=== PATIENT | female | born 1990 | race Two or more races ===

== ENCOUNTER 2018-04-02 18:46 | Emergency (ER) | payer MEDICAID ==
[2018-04-02 18:55] VITALS: BP 112/69
--- NOTE | 2018-04-02 20:04 | ER Document Report ---
ED General - General Chief Complaint: Requesting Detox from alcohol Stated Complaint: DETOX Time Seen by Provider: 04/02/18 19:52 Notes: 27-year-old female here with request for detox from alcohol. Over the past month she has been drinking 2-340 ounce beers daily. She ran out of her psychiatric medications (Vistaril gabapentin Seroquel etc.) 1 month ago and has been self-medicating with alcohol to help her sleep at night. She ran out of her medications and has not gone back to see [facility] for refills because she smokes marijuana and was afraid that she would be drug tested and they would not give her any more refills. So she chose to continue smoking marijuana and replacing her psychiatric medications with alcohol. She denies any SI HI hallucinations illicit drugs (aside from marijuana). She does not have any other physical complaints. TRAVEL OUTSIDE OF THE [place] IN LAST 30 DAYS: No - Related Data Allergies/Adverse Reactions: No Known Allergies Allergy (Verified 02/10/15 10:32) Past Medical History - Social History Smoking Status: Current Every Day Smoker Frequency of alcohol use: daily Drug Abuse: Marijuana Family History: Reviewed & Not Pertinent Patient has suicidal ideation: No Patient has homicidal ideation: No Renal/ Medical History: Denies: Hx Peritoneal Dialysis Psychiatric Medical History: Reports: Hx Bipolar Disorder, Hx Depression - Immunizations Hx Diphtheria, Pertussis, Tetanus Vaccination: Yes Review of Systems - Review of Systems Notes: See history of present illness for pertinent positive review of systems; otherwise all review of systems have been reviewed and are negative Physical Exam - Vital signs Vitals: Temp Pulse Resp BP Pulse Ox 98.5 F 93 20 112/69 98 04/02/18 18:54 04/02/18 18:54 04/02/18 18:54 04/02/18 18:54 04/02/18 18:54 - Notes Notes: PHYSICAL EXAMINATION: GENERAL: Well-appearing and in no acute distress. HEAD: Atraumatic, normocephalic. EYES: Pupils equal round and reactive to light, extraocular movements intact, sclera anicteric, conjunctiva are normal. ENT: nares patent, oropharynx clear without exudates. Moist mucous membranes. NECK: Normal range of motion, supple without lymphadenopathy LUNGS: CTAB and equal. No wheezes rales or rhonchi. HEART: Regular rate and rhythm without murmurs ABDOMEN: Soft, no tenderness. No facial grimacing/wincing upon palpation. No guarding, no rebound. EXTREMITIES: Normal range of motion, no pitting edema. No cyanosis. NEUROLOGICAL: Cranial nerves grossly intact. Normal sensory/motor exams. PSYCH: Normal mood, normal affect. SKIN: Warm, Dry, normal turgor, no rashes or lesions noted Course - Re-evaluation Re-evalutation: 04/02/18 20:02 MEDICAL DECISION MAKING: The patient does not currently have any tremors palpitations tachycardia or other symptoms of alcohol withdrawal syndrome I have performed a medical screening exam and patient does not currently have an emergency medical condition Discussed with her that our substance abuse team is not here at nighttime and will be back in the morning Discussed with her she could return in the morning if she would like to speak with them about detox placement She does not have any SI HI hallucinations or other emergency psychiatric conditions I feel safe with discharging her home and she has thanked us for our help Patient understands and agrees to the plan of care - Vital Signs Vital signs: Temp Pulse Resp BP Pulse Ox 98.5 F 93 20 112/69 98 04/02/18 18:54 04/02/18 18:54 04/02/18 18:54 04/02/18 18:54 04/02/18 18:54 Discharge - Discharge Clinical Impression: Desire for detoxification Condition: Good Disposition: HOME, SELF-CARE Additional Instructions: You were seen in the emergency department at [facility]. You requested alcohol detoxification. We do not perform that at this facility. You will need medical clearance and to help of our substance abuse team to place you into a detoxification facility. The substance abuse team will be here in the morning so please return then. Otherwise, please followup with your primary physician in the next few days for further management/evaluation. Please return to the emergency department for worsening of symptoms or any symptom that you deem to be concerning or life-threatening. Thank you for allowing us to be part of your care.
== END 2018-04-02 20:00 | disposition home or self-care (01) ==
LOC: ER 18:46
DX: F10.20 Alcohol dependence, uncomplicated (principal); F17.200 Nicotine dependence, unspecified, uncomplicated
CPT/HCPCS: 99283

== ENCOUNTER 2018-06-02 10:02 | Emergency (ER) | payer MEDICAID, OTHER ==
--- NOTE | 2018-06-02 10:13 | ER Document Report ---
ED Psych Disorder / Suicide - General Mode of Arrival: Ambulatory Information source: Patient, Law Enforcement, Transfer Record - IVC PETITION TRAVEL OUTSIDE OF THE [place] IN LAST 30 DAYS: No - HPI Patient complains to provider of: Other - IVC PETITION Onset: Other - UNKNOWN Onset was: Cannot confirm Quality of pain: No pain Suicide Risk Factors: Bipolar, Frightened friends/family, Substance abuse Situational problems related to: Spouse - EX Normal mood: No Associated symptoms: Agitated, Angry, Restlessness Similar symptoms previously: Yes Recently seen / treated by doctor: No <TERESA JIMÉNEZ - Last Filed: 06/02/18 18:11> <GAIL GONZALEZ - Last Filed: 06/06/18 09:18> <GUILLERMO MORALES - Last Filed: 06/06/18 10:00> - General Stated Complaint: PSYCH EVAL Time Seen by Provider: 06/02/18 10:08 - Related Data Allergies/Adverse Reactions: No Known Allergies Allergy (Verified 02/10/15 10:32) Past Medical History - General Information source: Patient - Social History Smoking Status: Current Every Day Smoker Cigarette use (# per day): Yes Chew tobacco use (# tins/day): No Smoking Education Provided: No Frequency of alcohol use: Heavy - DAILY Drug Abuse: Cocaine, Heroin, Marijuana, Methamphetamine Lives with: Friend Family History: Reviewed & Not Pertinent Patient has suicidal ideation: No - DENIES Patient has homicidal ideation: No - DENIES - Past Medical History Cardiac Medical History: Reports: None Pulmonary Medical History: Reports: None EENT Medical History: Reports: None Neurological Medical History: Reports: None Endocrine Medical History: Reports: None Renal/ Medical History: Reports: None. Denies: Hx Peritoneal Dialysis Malignancy Medical History: Reports: None GI Medical History: Reports: None Musculoskeletal Medical History: Reports None Skin Medical History: Reports None Psychiatric Medical History: Reports: Hx Bipolar Disorder, Hx Depression Surgical Hx: Negative - Immunizations Hx Diphtheria, Pertussis, Tetanus Vaccination: Yes <TERESA JIMÉNEZ - Last Filed: 06/02/18 18:11> Review of Systems - Review of Systems Constitutional: No symptoms reported EENT: No symptoms reported Cardiovascular: No symptoms reported Respiratory: No symptoms reported Gastrointestinal: No symptoms reported Genitourinary: No symptoms reported Female Genitourinary: No symptoms reported Musculoskeletal: No symptoms reported Skin: No symptoms reported Neurological/Psychological: See HPI <TERESA JIMÉNEZ - Last Filed: 06/02/18 18:11> Physical Exam - Vital signs Interpretation: Tachycardic - General General appearance: Appears well, Alert In distress: None - HEENT Head: Normocephalic Eyes: Normal Conjunctiva: Normal Ears: Normal Nasal: Normal Mouth/Lips: Normal Mucous membranes: Normal - Respiratory Respiratory status: No respiratory distress Breath sounds: Normal - Cardiovascular Rhythm: Regular - INITIALY TACHYCARDIC, NOW RESOLVED Heart sounds: Normal auscultation Murmur: No - Abdominal Inspection: Normal Distension: No distension - Back Back: Normal - Extremities General upper extremity: Normal inspection General lower extremity: Normal inspection - Neurological Neuro grossly intact: Yes Cognition: Normal Orientation: AAOx4 - Psychological Associated symptoms: Agitated - Skin Skin Temperature: Warm Skin Moisture: Dry Skin Color: Normal Skin Turgor: Elastic <TERESA JIMÉNEZ - Last Filed: 06/02/18 18:11> - Vital signs Vitals: Temp Pulse Resp BP Pulse Ox 99.1 F 133 H 20 139/77 H 94 06/02/18 10:10 06/02/18 10:10 06/02/18 10:10 06/02/18 10:10 06/02/18 10:10 Course - Laboratory Result Diagrams: 06/02/18 10:10 06/02/18 10:10 - EKG Interpretation by Il EKG shows normal: Sinus rhythm, Martha, Intervals, QRS Complexes, ST-T Waves Rate: Tachycardia <TERESA JIMÉNEZ - Last Filed: 06/02/18 18:11> - Laboratory Result Diagrams: 06/02/18 10:10 06/02/18 10:10 <GAIL GONZALEZ - Last Filed: 06/06/18 09:18> - Laboratory Result Diagrams: 06/02/18 10:10 06/02/18 10:10 <GUILLERMO MORALES - Last Filed: 06/06/18 10:00> - Re-evaluation Re-evalutation: 06/02/18 18:11 At this time, patient is alert, somewhat agitated but much better than before. She continues to exhibit inappropriate behaviors which could be dangerous to herself, and therefore restraints have been continued for another 4 hours. ( TERESA JIMÉNEZ) - Vital Signs Vital signs: Temp Pulse Resp BP Pulse Ox 98.6 F 96 18 110/60 97 06/06/18 03:32 06/06/18 03:32 06/06/18 03:32 06/06/18 03:32 06/06/18 03:32 - Laboratory Laboratory results interpreted by me: 06/02/18 06/02/18 06/02/18 10:10 10:10 10:15 WBC 15.7 H MCH 26.3 L RDW 15.7 H Absolute Neutrophils 11.3 H Absolute Monocytes 1.5 H BUN 5 L Urine Urobilinogen 2.0 H Salicylates < 1.0 L Acetaminophen < 10 L Discharge <TERESA JIMÉNEZ - Last Filed: 06/02/18 18:11> <GAIL GONZALEZ - Last Filed: 06/06/18 09:18> <GUILLERMO MORALES - Last Filed: 06/06/18 10:00> - Discharge Clinical Impression: Schizoaffective disorder, bipolar type Condition: Stable Disposition: HOME, SELF-CARE Additional Instructions: You have been evaluated by both medical and the behavioral health team's and if deemed appropriate for discharge. Please follow-up with your outpatient mental health provider, [facility], in 3-5 days for your continued mental health and substance abuse services. Bipolar Disorder Bipolar disorder is also called manic-depressive disorder. Depression alternates with brain hyperactivity called leah. Each phase lasts from several days to a few weeks. We don't know exactly what causes bipolar disorder , but it's treatable. During the "manic phase," you may feel elated and energetic. You may have racing thoughts, rapid speech, increased activity, and grandiose ideas. During this time, you may not realize how poor your judgement is. Inappropriate spending, drug abuse, excessive alcohol use, marriage problems, and irresponsible sexual behavior are common during the manic phase. During the "depressive phase," you might feel depressed, guilty, worthless , fatigued, and unable to concentrate. You might have thoughts of suicide. Good treatments are available for bipolar disorder. Metaline is a classic drug for bipolar disorder, and is still often useful. If the manic phase is very mild, an antidepressant alone can be prescribed. If the manic phase is very severe, an antipsychotic medicine (such as Haldol) may be needed. The treatment must be matched to your symptoms, so it's important to work closely with your psychiatric care provider. Contact your physician, the hospital emergency center, crisis line, or your counsellor if you are losing control or having self-destructive thoughts. AT ANY TIME, IF YOUR SYMPTOMS CHANGE SIGNIFICANTLY OR WORSEN OR YOU DEVELOP NEW SYMPTOMS, RETURN TO THE EMERGENCY DEPARTMENT IMMEDIATELY FOR RE-EVALUATION. Prescriptions: Benztropine Mesylate [Cogentin 1 mg Tablet] 1 mg PO BID #14 tablet Olanzapine [Zyprexa 5 mg Tablet] 10 mg PO Q12 #28 tablet Referrals: BRODERICK BURLESON MD [ACTIVE STAFF] - Follow up as needed
[2018-06-02 11:00] LABS: ABSOLUTE BASOPHILS # (AUTO) 0.1 10^3/uL (0.0-0.2); ABSOLUTE EOSINOPHILS # (AUTO) 0.4 10^3/uL (0.0-0.6); ABSOLUTE LYMPHOCYTES (AUTO) 2.5 10^3/uL (0.5-4.7); ABSOLUTE MONOCYTES (AUTO) 1.5 10^3/uL (0.1-1.4); ABSOLUTE NEUT (AUTO) 11.3 10^3/uL (1.7-8.2); BASOPHILS % (AUTO) 0.4 % (0-2); EOSINOPHILS % (AUTO) 2.3 % (0-6); HEMATOCRIT 38.7 % (36.0-47.0); HEMOGLOBIN 12.7 g/dL (12.0-15.5); LYMPHOCYTES % (AUTO) 15.7 % (13-45); MEAN CORPUSCULAR HEMOGLOBIN 26.3 pg (27.0-33.4); MEAN CORPUSCULAR HGB CONC 32.9 g/dL (32.0-36.0); MEAN CORPUSCULAR VOLUME 80 fl (80-97); MONOCYTES % (AUTO) 9.7 % (3-13); PLATELET COUNT 329 10^3/uL (150-450); RED BLOOD COUNT 4.84 10^6/uL (3.72-5.28); RED CELL DISTRIBUTION WIDTH 15.7 % (11.5-14.0); SEGMENTED NEUTROPHILS % (AUTO) 71.9 % (42-78); TOTAL CELLS COUNTED % (AUTO) 100 %; WHITE BLOOD COUNT 15.7 10^3/uL (4.0-10.5)
[2018-06-02 11:10] LABS: ALANINE AMINOTRANSFERASE 26 U/L (9-52); ALBUMIN 4.2 g/dL (3.5-5.0); ALKALINE PHOSPHATASE 89 U/L (38-126); ANION GAP 14 (5-19); ASPARTATE AMINO TRANSFERASE 27 U/L (14-36); BILIRUBIN,DIRECT 0.3 mg/dL (0.0-0.4); BILIRUBIN,TOTAL 0.5 mg/dL (0.2-1.3); BLOOD UREA NITROGEN 5 mg/dL (7-20); CALCIUM 9.3 mg/dL (8.4-10.2); CARBON DIOXIDE 22 mmol/L (22-30); CHLORIDE 104 mmol/L (98-107); GLUCOSE 97 mg/dL (75-110); POTASSIUM 3.7 mmol/L (3.6-5.0); SODIUM 140.3 mmol/L (137-145); TOTAL PROTEIN 7.2 g/dL (6.3-8.2)
[2018-06-02 11:12] LABS: ACETAMINOPHEN < 10 ug/mL (10-30); ALCOHOL < 10 mg/dL (NONE DETECTED); SALICYLATE < 1.0 mg/dL (2.0-20.0)
[2018-06-02 11:22] LABS: APPEARANCE,URINE CLOUDY; BILIRUBIN,URINE NEGATIVE (NEGATIVE); COLOR,URINE YELLOW; GLUCOSE, URINE NEGATIVE (NEGATIVE); KETONES,URINE NEGATIVE (NEGATIVE); LEUKOCYTE ESTERASE,URINE NEGATIVE (NEGATIVE); NITRITE,URINE NEGATIVE (NEGATIVE); PROTEIN,URINE NEGATIVE (NEGATIVE); URINE SPECIFIC GRAVITY 1.016
[2018-06-02 11:31] LABS: URINE AMPHETAMINES SCREEN NEGATIVE; URINE BARBITURATES SCREEN NEGATIVE; URINE BENZODIAZEPINES SCREEN NEGATIVE; URINE COCAINE SCREEN NEGATIVE; URINE MARIJUANA (THC) SCREEN NEGATIVE; URINE METHADONE SCREEN NEGATIVE; URINE PHENCYCLIDINE SCREEN NEGATIVE
[2018-06-02] MEDS ORDERED: CHLORPROMAZINE HCL INJ 25 MG/1 ML AMPULE IM PRN ×2 (12:52→22:00)
[2018-06-02] MEDS: OLANZAPINE INJ/PF 10 MG SDV IM SCH ×2 (13:03→18:35)
[2018-06-02] MEDS: BENZTROPINE MESYLATE INJ 2 MG/2 ML AMPULE IM SCH ×2 (13:03→18:35)
[2018-06-02] MEDS ORDERED: CHLORPROMAZINE HCL INJ 25 MG/1 ML AMPULE IM ONE ×2 (16:21→20:22)
--- NOTE | 2018-06-02 22:28 | EKG REPORT ---
SEVERITY:- OTHERWISE NORMAL ECG - SINUS TACHYCARDIA : Confirmed by: Duyen Gilbert MD 02-Jun-2018 22:28:13
[2018-06-02] MEDS ORDERED: DIPHENHYDRAMINE HCL 25 MG CAPSULE PO ONE (23:47)
--- NOTE | 2018-06-03 10:04 | PSYCHOLOGICAL NOTE ---
Psych Note - Psych Note Psych Note: Met with Patient shortly after her arrival to the ED. While trying to evaluate the Patient, her mood quickly changed from laughing uncontrollably to yelling and screaming profanities, to speaking in a disorganized fashion. She had difficulty understanding the reason she was in the hospital despite being advised of the reason repeatedly. Ultimately, the Patient was placed in restraints as her behavior declined and she became aggressive and made several attempts to leave. The Patient was initially able to be redirected but became less redirectable despite multiple attempts at utilizing low tone of voice, answering questions asked by Patient, etc. Patient was ultimately provided intramuscular medication as a means to help her calm down as she was disrupting the unit through her yelling and cussing. Patient could / would not answer questions regarding her psychiatric /substance abuse history and attempts to contact her mother went unanswered. Patient continually talked about her son and stated Dr. Murphy was giving her "placebos that don't work" instead of advising her current medications. Patient was alert and oriented to person and place, but not time or circumstance. Mood was angry, confused, and not cooperative. She denied suicidal / homicidal ideation, intent or plan. She denied auditory /visual hallucinations, though at times appeared to be responding to internal stimuli at times during evaluation. No delusional thought content was noted. Thought processes were disorganized and irrational. Intellectual abilities were estimated within the average range. Conversational speech pressured, disorganized, and loud. Attention and concentration was impaired. Insight, judgment, and insight was impaired. Medication Recommendation by psychiatric provider: *1. Thorazine 50 mg IM every 8 hours as needed 2. Zyprexa 10 mg twice per day 3. Cogentin 1 mg daily Order later updated to Thorazine 100 mg IM every 6 hours as needed. Diagnosis: 1. 295.70 (F25.0) Schizoaffective Disorder, Bipolar Type Impression / Plan: Patient is recommended to remain on IVC and to seek inpatient placement as she remains manic is not capable of participating in evaluation due to her leah. She is considered a danger to self and others as she remains confused regarding the events that brought her in to the hospital. Without continued treatment and care, she is considered a harm to self and others. ED Physician in agreement with recommendations and disposition.
--- NOTE | 2018-06-03 10:09 | ER Document Report ---
Doctor's Note Notes: 06/03/18 10:08 Rounds: Chart reviewed and patient interviewed. Patient with a history of bipolar disorder and substance abuse. Being evaluated for agitation. Has received Thorazine and Zyprexa. Lab studies were all normal except for a white count of 15,700, but no infectious symptoms of concern. Vital signs are all essentially normal. Patient appears to be medically stable for transfer or discharge. Valdez Rodrigues MD
[2018-06-03] MEDS: OLANZAPINE INJ/PF 10 MG SDV IM SCH ×2 (11:38→17:57)
[2018-06-03] MEDS: BENZTROPINE MESYLATE INJ 2 MG/2 ML AMPULE IM SCH ×2 (11:40→17:57)
--- NOTE | 2018-06-04 10:12 | PSYCHOLOGICAL NOTE ---
Psych Note - Psych Note Psych Note: Psych Note: This clinician greeted patient and patient immediately stated that "she does not know why she is here". Patient states that she remembers getting in the police car but does not understand why they brought her to the hospital. After some discussion of her family, then patient admitted that she "disrespected" her mom's friend while she was staying at the house. When ask to clarify disrespect, she stated that she was talking "smack" and started throwing clothes at the woman. The woman's daughter went to call the police and patient ran outside. The woman and daughter then locked the door behind her. Then, waited on the police. It was later found out through Faye Watkins report that the patient had stolen some wine and when she was confronted with it, started to curse and waive her hands. Patient lives with her mom and 13 year old son. Son receives SSI in the amount of $500 a month. Faye Watkins, patient's mother states that the patient uses a portion of the SSI money to buy alcohol. Patient did admit that she stopped taking her medication because it was "making her feel funny". Patient stated that she missed her mental health appointment with Dr. Murphy last week but does plan to reschedule when she is able to do so. This Clinician gently confronted the patient with information asking if this incident had anything to do with wine and she became agitated stating "I don't know why I am here, I don't know why I am here". Diagnosis: 296.40 Bipolar Disorder 295.70 Schizoaffective Disorder Impression/Plan: Patient was agitated at any inquiry about the incident. Patient made intermittent eye contact, kept adjusting herself in the bed. Would only respond "I don't know why I am here" even when this clinician explained to her how she got here. Inpatient placement currently being sought at this time.
--- NOTE | 2018-06-04 10:14 | ER Document Report ---
Doctor's Note Notes: 06/04/18 10:12 Medical rounds: Chart reviewed and patient interviewed briefly. Vital signs remained stable. Laboratory values are unremarkable. On examination, patient is alert, oriented, and cooperative. She adamantly wishes to be discharged, insisting that she is "fine". She has no specific somatic complaint. She remains medically stable. Transfer to inpatient psychiatric facility is being sought.
[2018-06-04] MEDS: BENZTROPINE MESYLATE INJ 2 MG/2 ML AMPULE IM SCH (11:40)
[2018-06-04] MEDS: OLANZAPINE INJ/PF 10 MG SDV IM SCH (11:40)
[2018-06-04] MEDS: OLANZAPINE 5 MG TABLET PO SCH ×2 (11:54→18:12)
[2018-06-04] MEDS: BENZTROPINE MESYLATE 1 MG TABLET PO SCH ×2 (11:54→18:12)
[2018-06-04] MEDS ORDERED: NICOTINE 21 MG/24 HR PATCH.TD24 TD ONE (12:15)
[2018-06-04] MEDS ORDERED: CHLORPROMAZINE HCL 50 MG TABLET PO ONE (14:44)
--- NOTE | 2018-06-04 17:01 | PSYCHOLOGICAL NOTE ---
Psych Note - Psych Note Psych Note: Psych Note: This clinician observed this patient at the nurses crying while she was on the phone with her mother. Nurse states that mom refuses to come see her. Nurse reports that pt has been back and forth at the desk calling her mother every few hours. Clinician staffed case with Dr. Trevizo.
--- NOTE | 2018-06-05 09:19 | ER Document Report ---
Doctor's Note Notes: 06/05/18 09:18 Medical rounds: Chart reviewed and patient interviewed briefly. Vital signs remained stable. Laboratory values are unremarkable. On examination, patient is alert, oriented, and cooperative. well-appearing female. Female states she is not suicidal or homicidal she would like to be discharged home. Pending psychology evaluation this morning. . She remains medically stable. Transfer to inpatient psychiatric facility is being sought.
[2018-06-05] MEDS: BENZTROPINE MESYLATE 1 MG TABLET PO SCH ×2 (10:18→17:31)
[2018-06-05] MEDS: OLANZAPINE 5 MG TABLET PO SCH ×2 (10:18→17:32)
[2018-06-06] MEDS: BENZTROPINE MESYLATE 1 MG TABLET PO SCH (09:01)
[2018-06-06] MEDS: OLANZAPINE 5 MG TABLET PO SCH (09:01)
--- NOTE | 2018-06-06 09:48 | ER Document Report ---
Doctor's Note Notes: 06/06/18 09:48 As the rounding physician for our psychiatric patients, I have reviewed the chart, vitals, lab work. Patient has been examined and noted to be medically stable states she feels clear mind and wishes to be discharged home. I am awaiting mental health in [place]. 06/06/18 10:20
[2018-06-06 11:21] VITALS: BP 109/60
== END 2018-06-06 11:21 | disposition home or self-care (01) ==
LOC: ER 10:02
DX: F25.0 Schizoaffective disorder, bipolar type (principal); F17.210 Nicotine dependence, cigarettes, uncomplicated; F14.10 Cocaine abuse, uncomplicated; F12.10 Cannabis abuse, uncomplicated; F15.10 Other stimulant abuse, uncomplicated; F11.10 Opioid abuse, uncomplicated; R00.0 Tachycardia, unspecified; Z78.1 Physical restraint status
CPT/HCPCS: 93005; 99285; 96372; 36415; 80307 ×4; 84703; 85025; 80053; 81001; 93010; J3490 ×9; J0515 ×2; J3230